=== PATIENT | male | born 2000 | race African-American/Black ===

== ENCOUNTER 2019-12-02 14:52 | Emergency (ER) | payer OTHER ==
[~2019-12-02] VITALS: Ht 190.5 cm; Wt 67.0 kg
[2019-12-02 15:40] VITALS: BP 114/78
[2019-12-02] MEDS ORDERED: POLY10DR3 EACHEYE (15:44)
--- NOTE | 2019-12-02 15:47 | PHYS DOC ---
Past History Past Medical History: No Pertinent History Past Surgical History: No Surgical History Smoking: Non-smoker Alcohol Use: None Drug Use: None Adult General Chief Complaint Chief Complaint: EYE PROBLEMS HPI HPI Patient is a 18 year old M who presents with irritation and drainage in the right eye. He states his symptoms started about 3 days ago and progressively worsened. He notes moderate drainage. He says his vision is normal. He has no pressure or pain in his eye. He has no other associated symptoms. He has no other exacerbating or relieving factors. Review of Systems Review of Systems Constitutional: Denies fever or chills [] Eyes: Denies change in visual acuity, or eye pain [] HENT: Denies nasal congestion or sore throat [] Respiratory: Denies cough or shortness of breath [] Cardiovascular: No additional information not addressed in HPI [] GI: Denies abdominal pain, nausea, vomiting, bloody stools or diarrhea [] : Denies dysuria or hematuria [] Musculoskeletal: Denies back pain or joint pain [] Integument: Denies rash or skin lesions [] Neurologic: Denies headache, focal weakness or sensory changes [] Endocrine: Denies polyuria or polydipsia [] All other systems were reviewed and found to be within normal limits, except as documented in this note. Family History Family History No pertinent family medical history was reported Current Medications Current Medications Current medications were reviewed Allergies Allergies Allergies Coded Allergies Type Severity Reaction Last Updated Verified No Known Drug Allergies 01/03/15 No Physical Exam Physical Exam Constitutional: Well developed, well nourished, no acute distress, non-toxic appearance. [] HENT: Normocephalic, atraumatic Eyes: Moderate erythema was noted in the right conjunctiva with mild drainage noted. Visual acuity is normal Neck: Normal range of motion, no tenderness, supple, no stridor. [] Cardiovascular:Heart rate regular rhythm, Lungs & Thorax: Bilateral breath sounds clear to auscultation [] Abdomen: Bowel sounds normal, soft, no tenderness, no masses, no pulsatile masses. [] Skin: Warm, dry, no erythema, no rash. [] Extremities: No tenderness, no cyanosis, no clubbing, ROM intact, no edema. [] Neurologic: Alert and oriented X 3, normal motor function, normal sensory function, no focal deficits noted. [] Psychologic: Affect normal, judgement normal, mood normal. [] EKG EKG [] Radiology/Procedures Radiology/Procedures [] Course & Med Decision Making Course & Med Decision Making Pertinent Labs and Imaging studies reviewed. (See chart for details) [] Dragon Disclaimer Dragon Disclaimer This electronic medical record was generated, in whole or in part, using a voice recognition dictation system. Departure Departure: Impression: Primary Impression: Conjunctivitis Disposition: HOME, SELF-CARE Condition: STABLE Referrals: PCP,NO (PCP) Patient Instructions: Bacterial Conjunctivitis Additional Instructions: Michael was seen emergency Department for eye irritation. No emergency medical condition was found on history physical exam. He was found have signs and symptoms of pinkeye or conjunctivitis. He is given a prescription for anabolic eyedrops. Is advised follow-up with his primary care doctor as needed for further management. Scripts Polymyxin B Sulf/Trimethoprim (POLYMYXIN B-TMP EYE DROPS) 10 Ml Drops 1 DROP EACHEYE QID for conjunctivitis for 7 Days, #10 ML Prov: LOTUS CONTRERAS MD 12/02/19 Problem Qualifiers Primary Impression: Conjunctivitis Conjunctivitis type: acute Acute conjunctivitis type: bacterial Laterality: left Qualified Codes: H10.32 - Unspecified acute conjunctivitis, left eye LOTUS CONTRERAS MD Dec 02, 2019 15:47
== END 2019-12-02 16:00 | disposition home or self-care (01) ==
LOC: ER 14:52
DX: H10.9 Unspecified conjunctivitis (principal)
CPT/HCPCS: 99283

== ENCOUNTER 2022-01-12 20:30 | Emergency (ER) | payer OTHER ==
[~2022-01-12] VITALS: Ht 188 cm; Wt 66.5 kg
[~2022-01-12 20:30] MED LIST: POLY10DR3 EACHEYE
[2022-01-12] MEDS ORDERED: LIDOCAINE 1% Multi-Dose 20 ML VIAL. IJ ONE (21:00)
[2022-01-12] MEDS ORDERED: DIPHTH,PERTUSS(ACELL),TET TOX 0.5 ML DISP.SYRIN. VAX IM ONE ×2 (21:00→21:03)
--- NOTE | 2022-01-12 21:41 | PHYS DOC ---
Past History Past Medical History: No Pertinent History (GERI IVEY APRN) Past Surgical History: No Surgical History (GERI IVEY APRN) Smoking: Non-smoker Additional Smoking Information: VAP Alcohol Use: None Drug Use: None (GERI IVEY APRN) General Adult EDM: Chief Complaint: FINGER INJURY HPI: HPI: Patient is a 21-year-old male who presents to the emergency department today for a laceration to his left index finger that occurred when he was attempting to open up a bag of chips was a kitchen knife and he slipped and cut his finger. Patient denies any decreased range of motion or decrease sensation in his fing er. He is unsure of his last tetanus shot. (GERI IVEY APRN) Review of Systems: Review of Systems: Musculoskeletal: See HPI Integument: See HPI Neurologic: See HPI (GERI IVEY APRN) Current Medications: Current Meds: Current Medications Medications (Trade) Dose Ordered Sig/Dylan Start Time Stop Time Status Last Admin Dose Admin Diphtheria/ Tetanus/Acell Pertussis (Boostrix) 0.5 ml STK-MED ONCE 01/12/22 21:03 01/12/22 21:03 DC Lidocaine HCl 20 ml 1X ONCE 01/12/22 21:00 01/12/22 21:03 DC 01/12/22 21:20 20 ML (GERI IVEY APRN) Allergies: Allergies: Allergies Coded Allergies Type Severity Reaction Last Updated Verified No Known Drug Allergies 01/03/15 No (GERI IVEY APRN) Physical Exam: PE: Constitutional: Well developed, well nourished, no acute distress, non-toxic appearance. [] HENT: Normocephalic, atraumatic Eyes: PERRL, EOMI, conjunctiva normal, no discharge. [] Neck: Normal range of motion, n no stridor Cardiovascular:Heart rate regular rhythm, no murmur [] Lungs & Thorax: Normal peripheral perfusion Abdomen: Soft and flat Skin: Warm, dry, no erythema, no rash. [] Back: No tenderness, no CVA tenderness. [] Extremities: No tenderness, no cyanosis, no clubbing, ROM intact, no edema. [] Left second finger: V-shaped laceration approximately 2.5 cm long with subcutaneous tissue involvement, range of motion intact, neuro intact, no visibl e foreign bodies, no tendon involvement. Neurologic: Alert and oriented X 3, normal motor function, normal sensory function, no focal deficits noted. [] Psychologic: Affect normal, judgement normal, mood normal. [] (GERI IVEY APRN) Current Patient Data: Vital Signs: Vital Signs Date Time Temp Pulse Resp B/P (MAP) Pulse Ox O2 Delivery O2 Flow Rate FiO2 01/12/22 20:42 98.3 74 16 134/53 (80) 98 Room Air (GERI IVEY APRN) EKG: EKG: [] (GERI IVEY APRN) Radiology/Procedures: Radiology/Procedures: [] (GERI IVEY APRN) Heart Score: C/O Chest Pain: N/A Risk Factors: Risk Factors: DM, Current or recent (<one month) smoker, HTN, HLP, family history of CAD, obesity. Risk Scores: Score 0 - 3: 2.5% MACE over next 6 weeks - Discharge Home Score 4 - 6: 20.3% MACE over next 6 weeks - Admit for Clinical Observation Score 7 - 10: 72.7% MACE over next 6 weeks - Early Invasive Strategies (GERI IVEY APRN) Course & Med Decision Making: Course & Med Decision Making Pertinent Labs and Imaging studies reviewed. (See chart for details) [] Patient presents to the emergency department for a laceration to his left index finger. This does require sutures as it involves subcutaneous tissue and the wound is not well approximated. Digital block performed, laceration repair performed, no tendon involvement, no visible foreign bodies, neuro intact, range of motion intact, patient tolerated procedure. Patient educated on laceration care, wound care and to monitor for infection. Advised to take Tylenol and ibuprofen. Educated on suture removal. I discussed with patient all findings and diagnostic testing as well as the need to follow-up with PCP for further evaluation and treatment or return to the ER if any new or worsening symptoms. Strict return precautions were also discussed at length. Patient voiced unders tanding and agreement with the plan. Patient is hemodynamically stable at the time of disposition. (GERI IVEY APRN) Course & Med Decision Making Did not see or evaluate patient. Did not discuss patient with [facility]. Generally agree with [facility]'s work-up and disposition per note. (CONDRA,LARRY Castillo Disclaimer: Jonathan Disclaimer: This electronic medical record was generated, in whole or in part, using a voice recognition dictation system. (GERI IVEY APRN) Laceration Repair Lac Repair Time: 2104 Confirmed: Patient, procedure, site, and site correct Consent: Patient has given verbal consent Laceration location: Left second finger Shape: V-shaped Depth: Subcutaneous tissue involvement Details: Clean with no foreign material Neurovascular, tendon exam: Intact Anesthesia: 1% lidocaine, digital block Preparation: Sterile field established Irrigation: Wound irrigated with sterile saline wound wash Skin closure: Simple interrupted sutures placed Size of suture: 6-0 Ethilon Number of sutures: 8 Complexity: Single layer Post procedure exam: Circulation, motor, sensory exam intact, bleeding controlled. Complications: None Patient tolerated: Well Performed by: self Total time: 25 minutes (GERI IVEY APRN) Departure Departure: Impression: Primary Impression: Laceration Disposition: HOME / SELF CARE / HOMELESS Condition: GOOD Referrals: PCP,NO (PCP) Patient Instructions: Fingertip Laceration Additional Instructions: You are seen in the emergency department today for a laceration which was repaired with sutures. Please monitor for any signs of infection with general redness, warmth, swelling or drainage. Please take Tylenol and ibuprofen for any pain. Keep your laceration clean and dry. You can wash it with warm water mild soap. Do not submerge your hand in any water for 48 hours. You can apply Polysporin or bacitracin ointment to keep a bandage in place. Wear the aluminum finger splint that was placed to avoid any disruption to the suture. You will need to follow-up with your primary care provider return to the emergency department in 7 to 10 days to have your sutures removed. Return to the emergency department if you develop any signs of infection, decreased range of motion or decreased sensation in your finger. GERI IVEY APRN Jan 12, 2022 21:41 LARRY GARDNER MD Jan 12, 2022 21:50
[2022-01-12 21:45] VITALS: BP 130/62
== END 2022-01-12 21:50 | disposition home or self-care (01) ==
LOC: ER 20:30
DX: S61.211A Laceration without foreign body of left index finger without damage to nail, initial encounter (principal); F17.200 Nicotine dependence, unspecified, uncomplicated; W26.0XXA Contact with knife, initial encounter; Y93.89 Activity, other specified; Y92.89 Other specified places as the place of occurrence of the external cause; Y99.8 Other external cause status
CPT/HCPCS: 12001; 90471; 90715; 99283

== ENCOUNTER 2022-01-21 13:20 | Emergency (ER) | payer OTHER ==
[~2022-01-21] VITALS: Ht 188 cm; Wt 66.5 kg
[2022-01-21 13:22] VITALS: BP 116/72
--- NOTE | 2022-01-21 13:29 | PHYS DOC ---
Past History Past Medical History: No Pertinent History Past Surgical History: No Surgical History Smoking: Non-smoker Alcohol Use: None Drug Use: None General Adult EDM: Chief Complaint: SUTURE/STAPLE REMOVAL HPI: HPI: 21-year-old male presents for suture removal from his left index finger. Patient has had no complications. He has no other complaints at this time. Review of Systems: Review of Systems: Constitutional: Denies fever or chills Eyes: Denies change in visual acuity HENT: Denies nasal congestion or sore throat Musculoskeletal: Denies back pain or joint pain Integument: Sutures left index finger Neurologic: Denies headache, focal weakness or sensory changes Lymphatic: Denies swollen glands Allergies: Allergies: Allergies Coded Allergies Type Severity Reaction Last Updated Verified No Known Drug Allergies 01/03/15 No Physical Exam: PE: Constitutional: Well developed, well nourished, no acute distress, non-toxic appearance. [] Neck: Normal range of motion, no tenderness, supple, no stridor. [] Cardiovascular:Heart rate regular rhythm, no murmur [] Lungs & Thorax: Bilateral breath sounds clear to auscultation [] Skin: Sutures with overlying scab of the left index finger, appropriately healing [] Back: No tenderness, no CVA tenderness. [] Extremities: No tenderness, no cyanosis, no clubbing, ROM intact, no edema. [] Neurologic: Alert and oriented X 3, normal motor function, normal sensory function, no focal deficits noted. [] Psychologic: Affect normal, judgement normal, mood normal. [] EKG: EKG: [] Radiology/Procedures: Radiology/Procedures: [] Heart Score: C/O Chest Pain: N/A Risk Factors: Risk Factors: DM, Current or recent (<one month) smoker, HTN, HLP, family history of CAD, obesity. Risk Scores: Score 0 - 3: 2.5% MACE over next 6 weeks - Discharge Home Score 4 - 6: 20.3% MACE over next 6 weeks - Admit for Clinical Observation Score 7 - 10: 72.7% MACE over next 6 weeks - Early Invasive Strategies Course & Med Decision Making: Course & Med Decision Making Pertinent Labs and Imaging studies reviewed. (See chart for details) The patient's sutures appear ready to be removed. They were removed without complication. Patient stable for discharge at this time. [] Dragon Disclaimer: Zairaramón Disclaimer: This electronic medical record was generated, in whole or in part, using a voice recognition dictation system. Departure Departure: Impression: Primary Impression: Encounter for removal of sutures Disposition: 01 HOME / SELF CARE / HOMELESS Condition: STABLE Referrals: PCP,NO (PCP) Patient Instructions: Suture Removal-Brief GEORGIA ATKINS DO Jan 21, 2022 13:29
== END 2022-01-21 13:48 | disposition home or self-care (01) ==
LOC: ER 13:20
DX: S61.211D Laceration without foreign body of left index finger without damage to nail, subsequent encounter (principal); X58.XXXD Exposure to other specified factors, subsequent encounter
CPT/HCPCS: 99282